=== PATIENT | male | born 1985 | race Caucasian/White ===

== ENCOUNTER 2017-09-23 18:06 | Emergency (ER) | payer MEDICAID ==
[~2017-09-23] VITALS: Ht 193 cm; Wt 75.5 kg
[~2017-09-23 18:06] MED LIST: ONDA8TAB9 PO
[2017-09-23] MEDS ORDERED: ketorolac trometh inj. 60 MG/2 ML VIAL IM ONE ×2 (19:35→20:00)
[2017-09-23] MEDS ORDERED: IBUP-1984 PO (20:10)
[2017-09-23 20:44] VITALS: BP 120/73
== END 2017-09-23 20:46 | disposition home or self-care (01) ==
LOC: ER 18:06
DX: S20.211A Contusion of right front wall of thorax, initial encounter (principal); F17.200 Nicotine dependence, unspecified, uncomplicated; Z60.2 Problems related to living alone; Z79.899 Other long term (current) drug therapy; W01.0XXA Fall on same level from slipping, tripping and stumbling without subsequent striking against object, initial encounter; Y93.89 Activity, other specified; Y92.89 Other specified places as the place of occurrence of the external cause; Y99.8 Other external cause status
CPT/HCPCS: 71045; 96372; 99283; J1885

== ENCOUNTER 2022-03-18 06:19 | Emergency (ER) | payer MEDICAID, OTHER ==
[~2022-03-18] VITALS: Ht 190.5 cm; Wt 72.7 kg
[2022-03-18 07:13] VITALS: BP 124/81
[2022-03-18] MEDS ORDERED: TETanus/Pertussis (Acell)/Diphther VAC/PF (Tdap-Adult) 0.5ml syringe IMVAC ONE (07:50)
== END 2022-03-18 09:51 | disposition home or self-care (01) ==
LOC: ER 06:21
DX: S01.111A Laceration without foreign body of right eyelid and periocular area, initial encounter (principal); S80.01XA Contusion of right knee, initial encounter; Z60.2 Problems related to living alone; Z79.899 Other long term (current) drug therapy; Y08.89XA Assault by other specified means, initial encounter; Y93.89 Activity, other specified; Y92.89 Other specified places as the place of occurrence of the external cause; Y99.8 Other external cause status
CPT/HCPCS: 12013; 90471; 90715; 99283